=== PATIENT | female | born 1960 | race Two or more races ===

== ENCOUNTER 2022-07-05 14:02 | Inpatient (IN) | payer MEDICAID, OTHER ==
[~2022-07-05] VITALS: Ht 156.2 cm; Wt 62.0 kg
[2022-07-05] MEDS ORDERED: LORazepam 2MG/ML-1ML VIAL ONE (15:13)
[2022-07-05] MEDS ORDERED: LORazepam 2MG/ML-1ML VIAL IV ONE ×2 (15:15→15:30)
[2022-07-05 15:34] LABS: Basophils # (auto) 0.1 10 ^3/uL (0-0.2); Basophils % (auto) 1.1 % (0.0-2.0); Eosinophils # (auto) 0.3 10 ^3/uL (0-0.8); Eosinophils % (auto) 4.6 % (0.0-7.0); Hematocrit 43.1 % (36.0-46.0); Hemoglobin 14.7 g/dL (12.2-16.2); Lymphocytes # (auto) 2.5 10 ^3/uL (0.4-5.4); Mean Corpuscular Hemoglobin 31.4 pg (28.0-32.0); Mean Corpuscular Hgb Conc. 34.2 g/dL (32.0-36.0); Mean Corpuscular Volume 91.9 fL (80.0-100.0); Monocytes # (auto) 0.6 10 ^3/uL (0-1.3); Monocytes % (auto) 8.8 % (0.0-12.0); Neutrophils # (auto) 3.6 10 ^3/uL (1.6-8.6); Neutrophils % (auto) 50.5 % (37.0-80.0); Nucleated Red Blood Cells % 0.1 %; Red Blood Cells 4.69 10^6/uL (4.0-5.20); Red Cell Distribution Width 13.5 % (11.8-14.3); White Blood Cell 7.2 10^3/uL (4.4-10.8)
[2022-07-05 16:01] LABS: Albumin 3.8 g/dL (3.4-5.0); Calcium 9.4 mg/dL (8.5-10.1); Potassium 3.2 mmol/L (3.5-5.1)
[2022-07-05 16:11] LABS: BUN/Creatinine Ratio 13.3 (10.0-20.0); Bilirubin, Total 0.4 mg/dL (0.2-1.0); Total Protein 7.4 g/dL (6.4-8.2)
[2022-07-05] MEDS ORDERED: HYDROcodone-ACET 10/325MG TAB PO ONE (17:00)
[2022-07-05 17:11] LABS: Urine Bacteria MANY /hpf (None Seen); Urine Blood Negative /uL (Negative); Urine Mucus FEW (None Seen); Urine Specific Gravity 1.027 (1.001-1.035); Urine WBC 1 /hpf (0 - 5)
[2022-07-05 17:24] LABS: Amphetamine Screen, Urine NEGATIVE (NEGATIVE); Barbiturate Scree,Urine NEGATIVE (NEGATIVE); Benzodiazephine Screen, Urine NEGATIVE (NEGATIVE); Cocaine Screen, Urine NEGATIVE (NEGATIVE); Opiate Scree,Urine POSITIVE (NEGATIVE); Phencyclidine Screen, Urine NEGATIVE (NEGATIVE)
[2022-07-05 17:32] LABS: Cannabinoid Screen, Urine POSITIVE (NEGATIVE)
[2022-07-05] MEDS ORDERED: ACETAMINOPHEN 325 MG TAB PO PRN (21:00)
[2022-07-05] MEDS ORDERED: ONDANSETRON HCL 4 MG/2 ML VIAL IV PRN (21:00)
[2022-07-05] MEDS ORDERED: HYDROcodone-ACET 5/325MG TAB PO ONE (22:00)
[2022-07-05] MEDS: OXcarbazepine 300 MG TAB PO SCH (22:07)
[2022-07-05] MEDS: ATORVASTATIN 20 MG TAB PO SCH (22:07)
[2022-07-05] MEDS: GABAPENTIN 300 MG CAP PO SCH (22:07)
[2022-07-06] MEDS ORDERED: HYDROcodone-ACET 5/325MG TAB PO ONE (02:30)
[2022-07-06] MEDS: HYDROcodone-ACET 5/325MG TAB PO PRN ×2 (05:30→11:35)
[2022-07-06 06:12] LABS: BUN/Creatinine Ratio 18.3 (10.0-20.0); Calcium 9.3 mg/dL (8.5-10.1); Potassium 3.3 mmol/L (3.5-5.1)
[2022-07-06] MEDS: LEVOTHYROXINE SODIUM 50 MCG TAB PO SCH (06:26)
[2022-07-06] MEDS: PANTOPRAZOLE 40 MG TAB PO SCH (09:46)
[2022-07-06] MEDS: GABAPENTIN 300 MG CAP PO SCH ×2 (09:46→22:01)
[2022-07-06] MEDS: amLODIPine BESYLATE 5 MG TAB PO SCH (09:47)
[2022-07-06] MEDS: OXcarbazepine 300 MG TAB PO SCH ×2 (09:54→22:01)
[2022-07-06] MEDS: TRIAMTERENE/HCTZ 37.5/25 MG CAP/TAB PO SCH (09:55)
[2022-07-06] MEDS ORDERED: SIMV-8 PO (12:29)
[2022-07-06] MEDS ORDERED: ESOM1CAP12 (12:29)
[2022-07-06] MEDS ORDERED: TRAZ1TAB12 PO (12:29)
[2022-07-06] MEDS ORDERED: LURA1TAB (12:29)
[2022-07-06] MEDS ORDERED: DOCU100C10 PO (12:29)
[2022-07-06] MEDS ORDERED: NYS15TP (12:29)
[2022-07-06] MEDS ORDERED: [UNRECOGNIZED DRUG - CODE] PO (12:29)
[2022-07-06] MEDS ORDERED: TRIA0.1O TOP (12:29)
[2022-07-06] MEDS ORDERED: LORA-483 PO (12:29)
[2022-07-06] MEDS ORDERED: IPRA0.00 ×2 (12:29→16:46)
[2022-07-06] MEDS ORDERED: POTA-180 PO (12:29)
[2022-07-06 13:40] VITALS: BP 117/74
[2022-07-06] MEDS ORDERED: CLINDAMYCIN 300MG IV 50 ML IV SCH (14:00)
[2022-07-06] MEDS: LORazepam 2MG/ML-1ML VIAL IV PRN ×2 (14:16→16:30)
[2022-07-06] MEDS: CLINDAMYCIN 600MG IV 50 ML IV SCH ×2 (15:24→22:01)
[2022-07-06] MEDS ORDERED: LEVO50TA7 PO (16:23)
[2022-07-06] MEDS ORDERED: PROBCAP30 OR (16:23)
[2022-07-06] MEDS ORDERED: AMLO-489 PO (16:24)
[2022-07-06] MEDS ORDERED: GARL200T PO (16:39)
[2022-07-06] MEDS ORDERED: OXCA300T50 PO (16:39)
[2022-07-06] MEDS ORDERED: TRIA75TA55 (16:39)
[2022-07-06] MEDS ORDERED: GABA300C10 PO (16:39)
[2022-07-06] MEDS ORDERED: BECL40AE11 INH (16:40)
[2022-07-06] MEDS ORDERED: HYDR1TAB97 PO (16:46)
[2022-07-06] MEDS ORDERED: MOME0.1C32 EX (16:46)
[2022-07-06 16:51] VITALS: BP 118/72
[2022-07-06] MEDS: HYDROcodone-ACET 10/325MG TAB PO PRN (18:04)
[2022-07-06 20:00] VITALS: BP 105/69
[2022-07-06 21:36] VITALS: BP 105/69
[2022-07-06] MEDS: ATORVASTATIN 20 MG TAB PO SCH (22:01)
[2022-07-07] MEDS: HYDROcodone-ACET 10/325MG TAB PO PRN (03:30)
[2022-07-07 04:42] VITALS: BP 100/69
[2022-07-07] MEDS: CLINDAMYCIN 600MG IV 50 ML IV SCH (05:58)
[2022-07-07] MEDS: LEVOTHYROXINE SODIUM 50 MCG TAB PO SCH (05:59)
[2022-07-07 08:31] VITALS: BP 115/74
[2022-07-07] MEDS: amLODIPine BESYLATE 5 MG TAB PO SCH (09:26)
[2022-07-07] MEDS: OXcarbazepine 300 MG TAB PO SCH (09:26)
[2022-07-07] MEDS: PANTOPRAZOLE 40 MG TAB PO SCH (09:27)
[2022-07-07] MEDS: GABAPENTIN 300 MG CAP PO SCH (09:27)
[2022-07-07] MEDS: TRIAMTERENE/HCTZ 37.5/25 MG CAP/TAB PO SCH (09:27)
[2022-07-07] MEDS ORDERED: CLIN300C8 PO (09:54)
[2022-07-07 11:48] VITALS: BP 115/74
[2022-07-07 12:34] VITALS: BP 127/76
== END 2022-07-07 13:20 | disposition home or self-care (01) | DRG 53 ==
LOC: ER 14:02 → OVERFLOW 21:06 → EAST 07-06 13:45
PROVIDERS: ADMIT Nurse Practitioner; ATTEND Family Medicine
DX: G40.919 Epilepsy, unspecified, intractable, without status epilepticus (principal); J69.0 Pneumonitis due to inhalation of food and vomit; E78.00 Pure hypercholesterolemia, unspecified; E78.5 Hyperlipidemia, unspecified; F12.10 Cannabis abuse, uncomplicated; F32.A Depression, unspecified; I10 Essential (primary) hypertension; J45.909 Unspecified asthma, uncomplicated; Z88.1 Allergy status to other antibiotic agents; Z88.6 Allergy status to analgesic agent; Z88.8 Allergy status to other drugs, medicaments and biological substances
CPT/HCPCS: 36415; 70450; 70551; 71045; 80048; 80053; 80307; 81001; 83605; 84484; 85025; 87040; 93005; G0378; J3490; J7060